=== PATIENT | female | born 1930 | race Caucasian/White ===

== ENCOUNTER 2017-05-08 09:15 | Emergency (ER) | payer MEDICARE ==
--- NOTE | 2017-05-08 11:07 | UC ---
Back Pain HPI - HPI Summary HPI Summary: Syncopal episode 3 weeks ago while reaching in to the cupboard for an aspirin because she was "not feeling good that day." she awoke on the floor with glasses and hearing aid off.She comes to urgent care today with right lower rib pain - History of Current Complaint Chief Complaint: UCBackPain Stated Complaint: RT RIB/HIP AREA PAIN Time Seen by Provider: 05/08/17 10:49 Hx Obtained From: Patient ?: No Onset/Duration: Sudden Onset, Still Present - pain in right posterior ribs still present Timing: Constant Severity Initially: Mild Severity Currently: Mild Pain Intensity: 4 Pain Scale Used: 0-10 Numeric Back Pain: Is Discrete @ - right posterior ribs Character: Unable to Describe Aggravating Factor(s): Movement, Lifting, Bending Alleviating Factor(s): Rest, Position Associated Signs And Symptoms: Positive: Negative - Allergies/Home Medications Allergies/Adverse Reactions: Allergies Allergy/AdvReac Type Severity Reaction Status Date / Time No Known Allergies Allergy Verified 05/08/17 10:45 Home Medications: Home Medications Levothyroxine TAB* [Synthroid TAB*] 100 mcg PO DAILY 05/08/17 [History Confirmed 05/08/17] PMH/Surg Hx/FS Hx/Imm Hx Previously Healthy: No Endocrine History: Hypothyroidism Cardiovascular History: Atrial Fibrillation - no current taking medications - Surgical History Surgical History: Yes Surgery Procedure, Year, and Place: Gallbladder age 38 [place] ([place] @ same time). Vericose vein - Family History Known Family History: Positive: Unknown - Social History Occupation: Retired Lives: With Family Alcohol Use: None Substance Use Type: None Smoking Status (MU): Never Smoked Tobacco Review of Systems Constitutional: Negative Skin: Negative Eyes: Negative ENT: Negative Respiratory: Negative Cardiovascular: Negative Gastrointestinal: Negative, Nausea - for about one hour after the fainting episode Genitourinary: Negative Motor: Negative Neurovascular: Negative Musculoskeletal: Arthralgia - right posterior ribs Neurological: Negative Psychological: Negative Is Patient Immunocompromised?: No All Other Systems Reviewed And Are Negative: Yes Physical Exam Triage Information Reviewed: Yes Appearance: Well-Appearing, No Pain Distress, Well-Nourished Vital Signs: Initial Vital Signs Temp 96.9 F 05/08/17 10:37 Pulse 84 05/08/17 10:37 Resp 14 12/15/17 10:37 BP 140/82 05/08/17 10:37 Pulse Ox 97 05/08/17 10:37 Vital Signs Reviewed: Yes Eye Exam: Normal Eyes: Positive: Conjunctiva Clear ENT Exam: Normal ENT: Positive: Normal ENT inspection, Hearing grossly normal, Pharynx normal, TMs normal, Uvula midline. Negative: Nasal congestion, Nasal drainage, Tonsillar swelling, Tonsillar exudate, Trismus, Muffled voice, Hoarse voice, Sinus tenderness Dental Exam: Normal Neck exam: Normal Neck: Positive: Supple, Nontender, No Lymphadenopathy Respiratory Exam: Normal Respiratory: Positive: Chest non-tender, Lungs clear, Normal breath sounds, No respiratory distress, No accessory muscle use Cardiovascular Exam: Normal Cardiovascular: Positive: RRR, No Murmur, Pulses Normal, Brisk Capillary Refill Abdominal Exam: Normal Abdomen Description: Positive: Nontender, No Organomegaly, Soft. Negative: CVA Tenderness (R), CVA Tenderness (L) Bowel Sounds: Positive: Present Musculoskeletal Exam: Normal Musculoskeletal: Positive: Strength Intact, ROM Intact, No Edema Neurological Exam: Normal Neurological: Positive: Alert, Muscle Tone Normal Psychological Exam: Normal Skin Exam: Normal Diagnostics - Radiology No standard instances Xray Interpretation: Positive (See Comments) - moderate to sever small vessel ischemia (brain, Ribs-No fracture Radiology Interpretation Completed By: Radiologist - EKG Cardiac Rate: NL Cardiac Rhythm: AFib: Normal Ectopy: None ST Segment: Normal Back Pain Course/Dx - Course Course Of Treatment: patient refused transfer to hospital for further evaluation. Patient signed AMA with understanding of the potentional for Stroke or VT, recurrent syncope. Advised pt to marilu escudero pcp with in 1 day - Differential Dx/Diagnosis Provider Diagnoses: Syncope Discharge - Discharge Plan Condition: Fair Disposition: AGAINST MEDICAL ADVICE Patient Education Materials: A-fib (Atrial Fibrillation) (ED), Syncope (ED), Hematuria (ED) Referrals: Dominique Jauergui MD [Medical Doctor] - 1 Day
--- NOTE | 2017-05-08 11:44 | RAD ---
Indication: Posterior lower RIGHT rib pain post fall 3 weeks ago. Comparison: No relevant prior exams available on the [facility] PACS for comparison. Technique: Dual energy PA chest and 2 dedicated RIGHT rib views. Report: Elevated lung volumes and mild prominence of the interstitial markings. No alveolar consolidation, focal pulmonary lesion, pleural effusion, pneumothorax. No definitive RIGHT rib fracture evident. Unremarkable soft tissue contours. IMPRESSION: 1. Stigmata of chronic obstructive pulmonary disease. 2. No RIGHT rib fracture or acute pulmonary or cardiac process evident.
--- NOTE | 2017-05-08 11:46 | RAD ---
INDICATION: Head injury, syncope COMPARISON: There are no prior studies available for comparison. TECHNIQUE: Contiguous axial sections of the brain were obtained from the skull base to the vertex without contrast. FINDINGS: The ventricles, cisterns and sulci are within normal limits. There are multiple focal areas of decreased density in the subcortical and periventricular white matter suggestive of moderate to severe chronic small vessel ischemic changes. No other focal abnormality or mass effect is seen. 33There is no evidence for hemorrhage. No significant focal osseous abnormality is seen. The visualized portion of the paranasal sinuses and mastoid air cells appear clear. IMPRESSION: 1. NO EVIDENCE FOR ACUTE INTRACRANIAL ABNORMALITY. 2. FINDINGS SUGGESTIVE OF MODERATE TO SEVERE CHRONIC SMALL VESSEL ISCHEMIC CHANGES.
== END 2017-05-08 12:37 | disposition left against medical advice (07) ==
LOC: UCCORT 09:15
DX: R55 Syncope and collapse (principal); E03.9 Hypothyroidism, unspecified
CPT/HCPCS: 70450; 81003; 93005; 99201; G0463